=== PATIENT | female | born 1990 | race Caucasian/White ===

== ENCOUNTER 2018-05-31 11:41 | Emergency (ER) | payer OTHER ==
[~2018-05-31] VITALS: Ht 170.2 cm; Wt 68.0 kg
[2018-05-31 12:38] LABS: HEMOGLOBIN 12.7 gm/dL (12.0-15.0); MCH 28.5 pg (26.0-34.0); MCHC 33.5 g/dL (28.0-37.0); RBC 4.48 mil/uL (4.20-5.00); RDW 14.7 % (10.5-14.5); WBC 7.2 thou/uL (4.0-11.0)
[2018-05-31 12:49] LABS: CALCIUM 10.1 mg/dL (8.5-10.1); CREATININE 0.9 mg/dL (0.6-1.0); POTASSIUM 3.5 mmol/L (3.5-5.1)
[2018-05-31] MEDS ORDERED: IBUPROFEN 800800 M1 PO (13:08)
[2018-05-31 13:36] VITALS: BP 107/72
--- NOTE | 2018-05-31 23:58 | EKG ---
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: : 1990 Requested By: Giana Nick Order Number: [id number] MD: Scott Wasserman Measurements Intervals [place] Rate: 126 P: 67 HI: 157 QRS: 29 QRSD: 72 T: 26 QT: 311 QTc: 451 Interpretive Statements Sinus tachycardia left atrial enlargement nonspecific st/t wave changes No previous ECG available for comparison Electronically Signed On 05-31-2018 23:58:32 CDT by Scott Wasserman [email or web address] ��������������������������������������������� <ELECTRONICALLY SIGNED> ���������������������������������������� By: Scott Wasserman MD ��������������������������������������������� 05/31/18 [id number] 1150 Scott Wasserman MD /PRANAV
== END 2018-05-31 13:38 | disposition home or self-care (01) ==
LOC: ER 11:41
PROVIDERS: Physician Assistant
DX: M79.642 Pain in left hand (principal); R42 Dizziness and giddiness